=== PATIENT | male | born 1960 | race Caucasian/White ===

== ENCOUNTER 2017-07-19 17:51 | Inpatient (IN) | payer OTHER ==
[~2017-07-19] VITALS: Ht 177.8 cm; Wt 96.5 kg
[~2017-07-19 17:51] MED LIST: ASPI81TA82 PO; CLOP75 PO; FOLI1TAB PO; HYDR10TA16 PO; LORA-474 PO; METO25 PO; NITR0.4S SL; SIMV40TA PO; THIA50CA PO
[2017-07-19 18:22] VITALS: BP 168/92; PULSE 80; RESP 18; TEMP 97.8; O2SAT 98
[2017-07-19] MEDS ORDERED: SODIUM CHLOR 0.9% 1000 ML INJ 1,000 ML IV SCH (19:22)
[2017-07-19] MEDS ORDERED: MORPHINE SULFATE 4 MG/ML INJ IV PUSH ONE (19:30)
[2017-07-19] MEDS ORDERED: METOCLOPRAMIDE HCL 10 MG/2 ML VIAL IV PUSH ONE (19:30)
[2017-07-19] MEDS ORDERED: MORPHINE SULFATE 8 MG/ML INJ IV PUSH ONE (19:30)
[2017-07-19 19:58] LABS: AUTOMATED NEUTROPHIL # 8.2 TH/MM3 (1.8-7.7); BASOPHIL # 0.1 TH/MM3 (0-0.2); BASOPHIL % 0.5 % (0.0-2.0); EOSINOPHIL % 0.3 % (0.0-4.0); HEMATOCRIT 46.5 % (39.0-51.0); LYMPH % 17.5 % (9.0-44.0); LYMPHOCYTE # 1.9 TH/MM3 (1.0-4.8); MEAN CELL VOLUME 96.9 FL (80.0-100.0); MEAN CORPUSCULAR HEMOGLOBIN 33.4 PG (27.0-34.0); MEAN CORPUSCULAR HGB CONC 34.5 % (32.0-36.0); MEAN PLATELET VOLUME 9.3 FL (7.0-11.0); MONO % 5.5 % (0.0-8.0); MONOCYTE # 0.6 TH/MM3 (0-0.9); NEUT % 76.2 % (16.0-70.0); PLATELET COUNT 133 TH/MM3 (150-450); RED CELL DISTRIBUTION WIDTH 13.3 % (11.6-17.2); WHITE BLOOD COUNT 10.7 TH/MM3 (4.0-11.0)
[2017-07-19 20:00] VITALS: BP 160/76; PULSE 80; RESP 15; O2SAT 98
--- NOTE | 2017-07-19 20:09 | PD ---
HPI Chief Complaint: Abdominal Pain Time Seen by Provider: 19:12 Travel History International Travel<30 days: No Contact w/Intl Traveler<30days: No Traveled to known affect area: No History of Present Illness HPI 56-year-old male that presents to the ED for evaluation of abdominal pain. Per patient is been having severe abdominal pain since yesterday. Pain got previously worse today and he went to work. He does drink alcohol every day. He states that he has had pancreatitis in the past and feels different from that. Per patient the pain is severe and is more constant and usually with his pancreatitis. He does have a history of kidney stones in the past. 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 He states that he has been able to have bowel movements but not significant enough for him to get relief. He has feels nauseous and has vomited 2. Has not taken anything for this. No recent surgeries. States that his urine has been red. No chest pain or shortness of breath. PFSH Past Medical History Hx Anticoagulant Therapy: Yes (ASA 81) Cancer: No Cardiovascular Problems: No Genitourinary: No Implanted Vascular Access Dvce: No Musculoskeletal: No Neurologic: No Psychiatric: No Reproductive: No Respiratory: No Past Surgical History Other Surgery: No Social History Alcohol Use: Yes (Daily) Tobacco Use: No Substance Use: No Allergies-Medications (Allergen,Severity, Reaction): Coded Allergies: codeine (Unverified Allergy, Severe, 10/12/16) Uncoded Allergies: CODEINE/NAUSEA (Allergy, Unknown, 11/05/02) NKA (Allergy, Unknown, 11/05/02) Reported Meds & Prescriptions Reported Meds & Active Scripts Active Reported Ativan (Lorazepam) 1 Mg Tab 1 Mg PO Q8HPRN Take 1 tablet by mouth every 6 hours as needed for anxiety (generic for ativan) Nitrostat (Nitroglycerin) 0.4 Mg Subl 0.4 Mg SL PRN 1 TAB SL EVERY 5 MINS X 3 PRN CHEST PAIN Simvastatin 40 Mg Tab 40 Mg PO DAILY Plavix (Clopidogrel Bisulfate) 75 Mg Tab 75 Mg PO DAILY Aspir-81 (Aspirin) 81 Mg Tab 81 Mg PO DAILY Lopressor (Metoprolol Tartrate) 25 Mg Tab 25 Mg PO BID Folate (Folic Acid) 1 Mg Tab 1 Mg PO DAILY Thiamine (Thiamine Hcl) 50 Mg Cap 100 Mg PO DAILY Lortab 10/500 (Acetaminophen/Hydrocodone Bitart) 10 Mg/500 Mg Tab 1 Tab PO Q4HPRN FOR PAIN Review of Systems Except as stated in HPI: all other systems reviewed are Neg Physical Exam Narrative GENERAL: SKIN: Warm and dry. HEAD: Atraumatic. Normocephalic. EYES: Pupils equal and round. No scleral icterus. No injection or drainage. ENT: No nasal bleeding or discharge. Mucous membranes pink and moist. Tongue is midline. No uvula deviation. NECK: Trachea midline. No JVD. CARDIOVASCULAR: Regular rate and rhythm. No murmurs, S3, S4. RESPIRATORY: No accessory muscle use. Clear to auscultation. Breath sounds equal bilaterally. GASTROINTESTINAL: Abdomen soft, tender to palpation throughout the abdomen , nondistended. Hepatic and splenic margins not palpable. MUSCULOSKELETAL: Extremities without clubbing, cyanosis, or edema. No obvious deformities. Full range of motion of the upper and lower extremities bilaterally. 2+ pulses bilaterally. NEUROLOGICAL: Awake and alert. No obvious cranial nerve deficits. Motor grossly within normal limits. Five out of 5 muscle strength in the arms and legs. Normal speech. PSYCHIATRIC: Appropriate mood and affect; insight and judgment normal. Data Data Last Documented VS Vital Signs Date Time Temp Pulse Resp B/P (MAP) Pulse Ox O2 Delivery O2 Flow Rate FiO2 07/19/17:22 97 Nasal Cannula 2.00 07/19/17 18:22 97.8 80 18 168/92 (117) Orders Orders Complete Blood Count With Diff (07/19/17 19:22) Comprehensive Metabolic Panel (07/19/17 19:22) Lipase (07/19/17:22) Lactic Acid (07/19/17:22) Urinalysis - C+S If Indicated (07/19/17 19:22) Ct Abd/Pel W Iv Contrast(Rout) (07/19/17 19:22) Iv Access Insert/Monitor (07/19/17 19:) Ecg Monitoring (07/19/17:) Morphine Inj (Morphine Inj) (07/19/17 19:30) Sodium Chlor 0.9% 1000 Ml Inj (Ns 1000 M (07/19/17 19:22) Metoclopramide Inj (Reglan Inj) (07/19/17 19:30) Morphine Inj (Morphine Inj) (07/19/17 19:30) Labs Laboratory Tests Test 07/19/17 19:40 White Blood Count 10.7 TH/MM3 Red Blood Count 4.80 MIL/MM3 Hemoglobin 16.0 GM/DL Hematocrit 46.5 % Mean Corpuscular Volume 96.9 FL Mean Corpuscular Hemoglobin 33.4 PG Mean Corpuscular Hemoglobin Concent 34.5 % Red Cell Distribution Width 13.3 % Platelet Count 133 TH/MM3 Mean Platelet Volume 9.3 FL Neutrophils (%) (Auto) 76.2 % Lymphocytes (%) (Auto) 17.5 % Monocytes (%) (Auto) 5.5 % Eosinophils (%) (Auto) 0.3 % Basophils (%) (Auto) 0.5 % Neutrophils # (Auto) 8.2 TH/MM3 Lymphocytes # (Auto) 1.9 TH/MM3 Monocytes # (Auto) 0.6 TH/MM3 Eosinophils # (Auto) 0.0 TH/MM3 Basophils # (Auto) 0.1 TH/MM3 CBC Comment DIFF FINAL Differential Comment Blood Urea Nitrogen 28 MG/DL Creatinine 1.38 MG/DL Random Glucose 98 MG/DL Total Protein 8.8 GM/DL Albumin 4.3 GM/DL Calcium Level 10.0 MG/DL Alkaline Phosphatase 92 U/L Aspartate Amino Transf (AST/SGOT) 50 U/L Alanine Aminotransferase (ALT/SGPT) 58 U/L Total Bilirubin 0.8 MG/DL Sodium Level 137 MEQ/L Potassium Level 4.3 MEQ/L Chloride Level 102 MEQ/L Carbon Dioxide Level 19.6 MEQ/L Anion Gap 15 MEQ/L Lactic Acid Level 1.4 mmol/L Lipase 1687 U/L [facility] Medical Decision Making Medical Screen Exam Complete: Yes Emergency Medical Condition: Yes Medical Record Reviewed: Yes Differential Diagnosis Pancreatitis versus acute abdomen versus abdominal pain versus gallbladder disease versus kidney stone versus pyelonephritis versus gastritis Narrative Course 56-year-old male the presents to the ED for evaluation of abdominal pain. Patient was properly examined and was found to have signs and symptoms consistent with appears to be possible acute abdomen. Labs and imaging order. Patient will start IV fluids and pain medication. Labs and imaging pending at the writing of this note. Case signed out to Kenrick Del Real PA-C pending disposition and plan. Darian Stoll July 19, 2017 20:09
[2017-07-19 20:14] LABS: ALBUMIN 4.3 GM/DL (3.4-5.0); ALT (GPT) 58 U/L (12-78); AST (GOT) 50 U/L (15-37); BICARBONATE 19.6 MEQ/L (21.0-32.0); BLOOD UREA NITROGEN 28 MG/DL (7-18); CHLORIDE 102 MEQ/L (98-107); CREATININE 1.38 MG/DL (0.60-1.30); GLUCOSE,RANDOM 98 MG/DL (74-106); SODIUM (NA) 137 MEQ/L (136-145)
[2017-07-19 20:17] LABS: ALKALINE PHOSPHATASE 92 U/L (45-117); TOTAL BILIRUBIN ADULT 0.8 MG/DL (0.2-1.0); TOTAL PROTEIN 8.8 GM/DL (6.4-8.2)
--- NOTE | 2017-07-19 20:37 | PD ---
Data Data Last Documented VS Vital Signs Date Time Temp Pulse Resp B/P (MAP) Pulse Ox O2 Delivery O2 Flow Rate FiO2 07/19/17 21:01 16 07/19/17 20:22 97 Nasal Cannula 2.00 07/19/17 20:00 80 160/76 (104) 07/19/17 18:22 97.8 Orders Orders Complete Blood Count With Diff (07/19/17 19:22) Comprehensive Metabolic Panel (07/19/17:22) Lipase (07/19/17:) Lactic Acid (07/19/17:22) Urinalysis - C+S If Indicated (07/19/17:22) Ct Abd/Pel W Iv Contrast(Rout) (07/19/17:22) Iv Access Insert/Monitor (07/19/17:) Ecg Monitoring (07/19/17:) Morphine Inj (Morphine Inj) (07/19/17 19:30) Sodium Chlor 0.9% 1000 Ml Inj (Ns 1000 M (07/19/17:22) Metoclopramide Inj (Reglan Inj) (07/19/17 19:30) Morphine Inj (Morphine Inj) (07/19/17 19:30) Admit Order (Ed Use Only) (07/19/17 22:16) Labs Laboratory Tests Test 07/19/17 19:40 07/19/17 20:53 White Blood Count 10.7 TH/MM3 Red Blood Count 4.80 MIL/MM3 Hemoglobin 16.0 GM/DL Hematocrit 46.5 % Mean Corpuscular Volume 96.9 FL Mean Corpuscular Hemoglobin 33.4 PG Mean Corpuscular Hemoglobin Concent 34.5 % Red Cell Distribution Width 13.3 % Platelet Count 133 TH/MM3 Mean Platelet Volume 9.3 FL Neutrophils (%) (Auto) 76.2 % Lymphocytes (%) (Auto) 17.5 % Monocytes (%) (Auto) 5.5 % Eosinophils (%) (Auto) 0.3 % Basophils (%) (Auto) 0.5 % Neutrophils # (Auto) 8.2 TH/MM3 Lymphocytes # (Auto) 1.9 TH/MM3 Monocytes # (Auto) 0.6 TH/MM3 Eosinophils # (Auto) 0.0 TH/MM3 Basophils # (Auto) 0.1 TH/MM3 CBC Comment DIFF FINAL Differential Comment Blood Urea Nitrogen 28 MG/DL Creatinine 1.38 MG/DL Random Glucose 98 MG/DL Total Protein 8.8 GM/DL Albumin 4.3 GM/DL Calcium Level 10.0 MG/DL Alkaline Phosphatase 92 U/L Aspartate Amino Transf (AST/SGOT) 50 U/L Alanine Aminotransferase (ALT/SGPT) 58 U/L Total Bilirubin 0.8 MG/DL Sodium Level 137 MEQ/L Potassium Level 4.3 MEQ/L Chloride Level 102 MEQ/L Carbon Dioxide Level 19.6 MEQ/L Anion Gap 15 MEQ/L Lactic Acid Level 1.4 mmol/L Lipase 1687 U/L Urine Color YELLOW Urine Turbidity CLEAR Urine pH 5.5 Urine Specific [place] 1.017 Urine Protein NEG mg/dL Urine Glucose (UA) NEG mg/dL Urine Ketones 10 mg/dL Urine Occult Blood NEG Urine Nitrite NEG Urine Bilirubin NEG Urine Urobilinogen LESS THAN 2.0 MG/DL Urine Leukocyte Esterase NEG Urine RBC 1 /hpf Urine WBC LESS THAN 1 /hpf Microscopic Urinalysis Comment CULT NOT INDICATED MDM Medical Record Reviewed: Yes Supervised Visit with BRADY: No Narrative Course See previous providers notes. Briefly this is a 56-year-old male who presents for evaluation of generalized abdominal pain. Reports that he typically drinks a sixpack of alcohol a day. His pain started yesterday. He has generalized aching abdominal pain. He reports multiple episodes of emesis today. He reports that he had dark colored urine yesterday evening but no gross hematuria. He received pain medication prior to my examination with improvement in his pain. On examination he does have generalized abdominal tenderness to palpation. There is no guarding. Lab work is notable for a lipase count of 1687. He reports that he has had pancreatitis approximately 3- 4 times in the past. BUN is 28, creatinine is 1.38. CBC reveals a platelet count of 133. CT abdomen and pelvis reveals CONCLUSION: 1. Abnormal appearance to the head of the pancreas with diffuse enlargement, indistinctness of the surrounding fat, some focal layering free fluid, and thickening of the second portion of duodenal wall. These findings are new when compared to September 2016. The findings suggest pancreatitis; recommend correlation with clinical labs. 2. Left nephrectomy with stable appearance to the nephrectomy bed. At this point time the plan is to admit the patient for acute pancreatitis. Discussed with Dr. Dhillon who is agreeable with admission to Dr. العلي. Diagnosis Primary Impression: Pancreatitis Admitting Information Admitting Physician Requests: Admit Kenrick Del Real July 19, 2017 20:37
[2017-07-19 21:20] LABS: BILIRUBIN, URINE NEG (NEG); BLOOD, URINE NEG (NEG); GLUCOSE,URINE NEG (NEG); KETONE, URINE 10 mg/dL (NEG); NITRITE,URINE NEG (NEG); PH, URINE 5.5 (5.0-8.5); URINE COLOR YELLOW (YELLW/STRAW); URINE LEUKOCYTE ESTERASE NEG (NEG)
--- NOTE | 2017-07-19 22:12 | RADRPT ---
EXAM DATE: 07/19/2017 9:49 PM EDT AGE/SEX: 56 years / Male INDICATIONS: Abdomen pain. CLINICAL DATA: This is the patient's initial encounter. Patient reports that signs and symptoms have been present for 1 day and indicates a pain score of 8/10. MEDICAL/SURGICAL HISTORY: Pancreatitis. None. ORAL CONTRAST: No oral contrast ingested. RADIATION DOSE: 14.13 CTDI (mGy) COMPARISON: [facility], CT ABDOMEN AND PELVIS W/ CONTRAST, 10/01/2016. . TECHNIQUE: Multiple contiguous axial images were obtained through the abdomen and pelvis following b olus infusion of 100 ml Omnipaque 350 (iohexol) nonionic water-soluble contrast as a single exam do se. No oral contrast ingested. Using automated exposure control and adjustment of the mA and/or kV a ccording to patient size, the radiation dose was kept as low as reasonably achievable to obtain optim al diagnostic quality images. Lower Lungs: The visualized lower lungs are clear. Small hiatus hernia Liver: The liver has a homogeneous density without space-occupying lesion. There is no dilation of th e biliary tree. No calcified gallstones. Spleen: Homogeneous density without enlargement. Pancreas: Abnormal. There is mild enlargement and induration of the soft tissues about the head of t he pancreas, some fluid layering along anterior Gerota's fascia and thickening of the wall of the sec ond portion of the duodenum. These findings are new when compared to prior CT in September 2016. The bod y and tail the pancreas are normal in configuration. Kidneys: The right kidney is normal in appearance. Left nephrectomy without focal abnormality at the nephrectomy site. Adrenal Glands: Unremarkable. Aorta: The aorta and proximal iliac vessels are grossly unremarkable without aneurysmal dilation. Bowel/Mesentery: The bowel loops are grossly unremarkable. The cecum and sigmoid colon have a normal configuration. Abdominal Wall: Intact. Retroperitoneum: No evidence of adenopathy in the retrocrural, para-aortic, or deep pelvic regions. Bladder: Contours are smooth. Reproductive Organs: No abnormal masses or calcifications seen. Inguinal: The inguinal region is unremarkable without evidence of adenopathy. Bony Structures: Stable mild degenerative changes in the lower lumbar spine. No lytic or expansile l esions seen. CONCLUSION: 1. Abnormal appearance to the head of the pancreas with diffuse enlargement, indistinctness of the s urrounding fat, some focal layering free fluid, and thickening of the second portion of duodenal wall . These findings are new when compared to September 2016. The findings suggest pancreatitis; recommend c orrelation with clinical labs. 2. Left nephrectomy with stable appearance to the nephrectomy bed. Electronically signed by: Joel Moses MD 07/19/2017 10:11 PM EDT
[2017-07-19 22:18] VITALS: BP 148/70; PULSE 75; RESP 14; O2SAT 95
[2017-07-19] MEDS ORDERED: NALOXONE HCL 0.4 MG/ML AMP IV PUSH PRN (22:30)
[2017-07-19] MEDS ORDERED: MAGNESIUM HYDROXIDE SUSP 30 ML CUP PO PRN (22:30)
[2017-07-19] MEDS ORDERED: LACTULOSE SYRUP 20 GM/30 ML CUP PO PRN (22:30)
[2017-07-19] MEDS ORDERED: BISACODYL 10 MG SUPP RECTAL PRN (22:30)
[2017-07-19] MEDS ORDERED: LORazepam 1 MG TAB PO PRN (22:30)
[2017-07-19] MEDS ORDERED: NITROGLYCERIN 0.4 MG SL 25 TABS/BTL SL PRN (22:30)
--- NOTE | 2017-07-19 22:34 | HHI.HP ---
HPI Service [facility] Hospitalists Primary Care Physician Unknown Admission Diagnosis Acute pancreatitis Chief Complaint: 1 day abdominal pain nausea and vomit Travel History International Travel<30 Days: No Contact w/Intl Traveler <30 Da: No Traveled to Known Affected Are: No History of Present Illness 56-year-old male that presents to the ED for evaluation of abdominal pain. Per patient is been having severe abdominal pain since yesterday. Pain got previously worse today and he went to work. He does drink alcohol every day. He states that he has had pancreatitis in the past and feels different from that. Per patient the pain is severe and is more constant and usually with his pancreatitis. He does have a history of kidney stones in the past. 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 He states that he has been able to have bowel movements but not significant enough for him to get relief. He has feels nauseous and has vomited 2. Has not taken anything for this. No recent surgeries. States that his urine has been red. No chest pain or shortness of breath. In er had lab work consistent with pancreatitis and has CT suggestive of pancreatitis. Review of Systems Gastrointestinal: COMPLAINS OF: Abdominal pain, Nausea, Vomiting Past Family Social History Past Medical History hypertension,cad s/p stent kidney cancer pancreatitis Past Surgical History left nephrectomy 2 stents Reported Medications Ativan (Lorazepam) 1 Mg Tab 1 Mg PO Q8HPRN Take 1 tablet by mouth every 6 hours as needed for anxiety (generic for ativan) Nitrostat (Nitroglycerin) 0.4 Mg Subl 0.4 Mg SL PRN 1 TAB SL EVERY 5 MINS X 3 PRN CHEST PAIN Simvastatin 40 Mg Tab 40 Mg PO DAILY Plavix (Clopidogrel Bisulfate) 75 Mg Tab 75 Mg PO DAILY Aspir-81 (Aspirin) 81 Mg Tab 81 Mg PO DAILY Lopressor (Metoprolol Tartrate) 25 Mg Tab 25 Mg PO BID Folate (Folic Acid) 1 Mg Tab 1 Mg PO DAILY Thiamine (Thiamine Hcl) 50 Mg Cap 100 Mg PO DAILY Lortab 10/500 (Acetaminophen/Hydrocodone Bitart) 10 Mg/500 Mg Tab 1 Tab PO Q4HPRN FOR PAIN Allergies: Coded Allergies: codeine (Unverified Allergy, Severe, 10/12/16) Uncoded Allergies: CODEINE/NAUSEA (Allergy, Unknown, 11/05/02) NKA (Allergy, Unknown, 11/05/02) Social History drinks almost daily has decreased down to 6 cans beer daily Physical Exam Vital Signs Vital Signs Date Time Temp Pulse Resp B/P (MAP) Pulse Ox O2 Delivery O2 Flow Rate FiO2 07/19/17 22:18 75 14 148/70 (96) 95 Room Air 07/19/17 21:01 16 07/19/17 20:22 97 Nasal Cannula 2.00 07/19/17 20:00 80 15 160/76 (104) 98 Nasal Cannula 2.00 07/19/17 18:22 97.8 80 18 168/92 (117) 98 Physical Exam GENERAL: This is a well-nourished, well-developed patient, in no apparent distress. SKIN: No rashes, ecchymoses or lesions. Cool and dry. HEAD: Atraumatic. Normocephalic. No temporal or scalp tenderness. EYES: Pupils equal round and reactive. Extraocular motions intact. No scleral icterus. No injection or drainage. ENT: Nose without bleeding, purulent drainage or septal hematoma. Throat without erythema, tonsillar hypertrophy or exudate. Uvula midline. Airway patent. NECK: Trachea midline. No JVD or lymphadenopathy. Supple, nontender, no meningeal signs. CARDIOVASCULAR: Regular rate and rhythm without murmurs, gallops, or rubs. RESPIRATORY: Clear to auscultation. Breath sounds equal bilaterally. No wheezes , rales, or rhonchi. GASTROINTESTINAL: Abdomen soft, mild-tender, nondistended. No hepato- splenomegaly, or palpable masses. No guarding. MUSCULOSKELETAL: Extremities without clubbing, cyanosis, or edema. No joint tenderness, effusion, or edema noted. No calf tenderness. Negative Homans sign bilaterally. NEUROLOGICAL: Awake and alert. Cranial nerves II through XII intact. Motor and sensory grossly within normal limits. Five out of 5 muscle strength in all muscle groups. Normal speech. Laboratory Laboratory Tests Test 07/19/17 19:40 07/19/17 20:53 White Blood Count 10.7 Red Blood Count 4.80 Hemoglobin 16.0 Hematocrit 46.5 Mean Corpuscular Volume 96.9 Mean Corpuscular Hemoglobin 33.4 Mean Corpuscular Hemoglobin Concent 34.5 Red Cell Distribution Width 13.3 Platelet Count 133 Mean Platelet Volume 9.3 Neutrophils (%) (Auto) 76.2 Lymphocytes (%) (Auto) 17.5 Monocytes (%) (Auto) 5.5 Eosinophils (%) (Auto) 0.3 Basophils (%) (Auto) 0.5 Neutrophils # (Auto) 8.2 Lymphocytes # (Auto) 1.9 Monocytes # (Auto) 0.6 Eosinophils # (Auto) 0.0 Basophils # (Auto) 0.1 CBC Comment DIFF FINAL Differential Comment Blood Urea Nitrogen 28 Creatinine 1.38 Random Glucose 98 Total Protein 8.8 Albumin 4.3 Calcium Level 10.0 Alkaline Phosphatase 92 Aspartate Amino Transf (AST/SGOT) 50 Alanine Aminotransferase (ALT/SGPT) 58 Total Bilirubin 0.8 Sodium Level 137 Potassium Level 4.3 Chloride Level 102 Carbon Dioxide Level 19.6 Anion Gap 15 Lactic Acid Level 1.4 Lipase 1687 Urine Color YELLOW Urine Turbidity CLEAR Urine pH 5.5 Urine Specific [place] 1.017 Urine Protein NEG Urine Glucose (UA) NEG Urine Ketones 10 Urine Occult Blood NEG Urine Nitrite NEG Urine Bilirubin NEG Urine Urobilinogen LESS THAN 2.0 Urine Leukocyte Esterase NEG Urine RBC 1 Urine WBC LESS THAN 1 Microscopic Urinalysis Comment CULT NOT INDICATED Result Diagram: 07/19/17193907/19/171939 Imaging Last 24 hours Impressions Abdomen/Pelvis CT 07/19/171921 Signed Impressions: CONCLUSION: Course in er received pain medication IV fluid Septic Shock Reassessment Septic shock perfusion: reassessment completed Caprini VTE Risk Assessment Caprini VTE Risk Assessment: Mod/High Risk (score >= 2) Caprini Risk Assessment Model Point Value = 1 Point Value = 2 Point Value = 3 Point Value = 5 Age 41-60 Minor surgery BMI > 25 kg/m2 Swollen legs Varicose veins or History of unexplained or recurrent spontaneous Oral contraceptives or hormone replacement Sepsis (< 1 month) Serious lung disease, including pneumonia (< 1 month) Abnormal pulmonary function Acute myocardial infarction Congestive heart failure (< 1 month) History of inflammatory bowel disease Medical patient at bed rest Age 61-74 Arthroscopic surgery Major open surgery (> 45 min) Laparoscopic surgery (> 45 min) Malignancy Confined to bed (> 72 hours) Immobilizing plaster cast Central venous access Age >= 75 History of VTE Family history of VTE Factor V Leiden Prothrombin [id number] Lupus anticoagulant Anticardiolipin antibodies Elevated serum homocysteine Heparin-induced thrombocytopenia Other congenital or acquired thrombophilia Stroke (< 1 month) Elective arthroplasty Hip, pelvis, or leg fracture Acute spinal cord injury (< 1 month) Prophylaxis Regimen Total Risk Factor Score Risk Level Prophylaxis Regimen 0-1 Low Early ambulation 2 Moderate Order ONE of the following: *Sequential Compression Device (SCD) *Heparin 5000 units SQ BID 3-4 Higher Order ONE of the following medications: *Heparin 5000 units SQ TID *Enoxaparin/Lovenox 40 mg SQ daily (WT < 150 kg, CrCl > 30 mL/min) *Enoxaparin/Lovenox 30 mg SQ daily (WT < 150 kg, CrCl > 10-29 mL/min) *Enoxaparin/Lovenox 30 mg SQ BID (WT < 150 kg, CrCl > 30 mL/min) AND/OR *Sequential Compression Device (SCD) 5 or more Highest Order ONE of the following medications: *Heparin 5000 units SQ TID (Preferred with Epidurals) *Enoxaparin/Lovenox 40 mg SQ daily (WT < 150 kg, CrCl > 30 mL/min) *Enoxaparin/Lovenox 30 mg SQ daily (WT < 150 kg, CrCl > 10-29 mL/min) *Enoxaparin/Lovenox 30 mg SQ BID (WT < 150 kg, CrCl > 30 mL/min) AND *Sequential Compression Device (SCD) Assessment and Plan Problem List: (1) Pancreatitis ICD Codes: K85.90 - Acute pancreatitis without necrosis or infection, unspecified Status: Acute Plan: IV fluid pain medication follow labs (2) CAD (coronary artery disease) ICD Codes: I25.10 - Atherosclerotic heart disease of [place] coronary artery without angina pectoris Plan: continue home medication Assessment and Plan further plan as case develops Code Status full Discussed Condition With patient Physician Certification 2 Midnight Certification Type: Admission for Inpatient Services Order for Inpatient Services The services are ordered in accordance with Medicare regulations or non- Medicare payer requirements, as applicable. In the case of services not specified as inpatient-only, they are appropriately provided as inpatient services in accordance with the 2-midnight benchmark. Estimated LOS (days): 2 2 days is the estimated time the patient will need to remain in the hospital, assuming treatment plan goals are met and no additional complications. Post-Hospital Plan: Home Notes: Did discuss with patient abstinence from alcohol he does realize it is causing his symptoms Robin Boudreaux MD July 19, 2017 22:34
[2017-07-19] MEDS ORDERED: ONDANSETRON ODT 4 MG TAB PO PRN (22:45)
[2017-07-19] MEDS ORDERED: ACETAMINOPHEN/HYDROcodone 325 MG/10 MG TAB PO PRN (23:00)
[2017-07-19] MEDS: SODIUM CHLOR 0.45% 1000 ML INJ 1,000 ML IV SCH (23:11)
[2017-07-20] VITALS (14 sets, daily range): BP systolic 126–195; BP diastolic 68–99; PULSE 52–82; RESP 16–20; TEMP 97.6–98.4; O2SAT 92–100
[2017-07-20] MEDS ORDERED: IOHEXOL 350 MG/ML 10 ML VIAL (for RAD DIAG) IVCONTRAST ONE (00:09)
[2017-07-20] MEDS ORDERED: OMEP40CA2 (01:49)
[2017-07-20] MEDS ORDERED: LOSA50TA PO (01:49)
[2017-07-20] MEDS ORDERED: CENTCHW4 PO (01:49)
[2017-07-20] MEDS ORDERED: CARA1TAB6 PO (01:49)
[2017-07-20] MEDS ORDERED: CYCL10TA PO (01:49)
[2017-07-20] MEDS: MORPHINE SULFATE 4 MG/ML INJ IV PUSH PRN ×2 (02:09→06:16)
[2017-07-20] MEDS: SODIUM CHLORIDE 0.9% FLUSH 10 ML FLUSH IV FLUSH PRN ×2 (02:09→06:18)
[2017-07-20 07:19] LABS: ALBUMIN 3.2 GM/DL (3.4-5.0); ALT (GPT) 40 U/L (12-78); AST (GOT) 29 U/L (15-37); BICARBONATE 22.6 MEQ/L (21.0-32.0); BLOOD UREA NITROGEN 19 MG/DL (7-18); CALCIUM 8.2 MG/DL (8.5-10.1); CHLORIDE 105 MEQ/L (98-107); CREATININE 1.07 MG/DL (0.60-1.30); GLOMERULAR FILTRATION RATE 71 ML/MIN (>89); GLUCOSE,RANDOM 106 MG/DL (74-106); SODIUM (NA) 139 MEQ/L (136-145)
[2017-07-20 07:24] LABS: ALKALINE PHOSPHATASE 73 U/L (45-117); TOTAL PROTEIN 6.8 GM/DL (6.4-8.2)
[2017-07-20] MEDS: FOLIC ACID 1 MG TAB PO SCH (09:56)
[2017-07-20] MEDS: PRAVASTATIN SOD 80 MG TAB PO SCH (09:56)
[2017-07-20] MEDS: THIAMINE HCL 100 MG TAB PO SCH (09:57)
[2017-07-20] MEDS: METOPROLOL TARTRATE 25 MG TAB PO SCH ×2 (09:57→20:05)
[2017-07-20] MEDS: SODIUM CHLORIDE 0.9% FLUSH 10 ML FLUSH IV FLUSH SCH ×2 (09:58→20:08)
[2017-07-20] MEDS: DOCUSATE SODIUM 50 MG/SENNA 8.6 MG TAB PO SCH ×2 (09:58→20:05)
[2017-07-20] MEDS: ASPIRIN 81 MG CHEW TAB PO SCH (09:58)
[2017-07-20] MEDS: CLOPIDOGREL 75 MG TAB PO SCH (09:58)
[2017-07-20] MEDS ORDERED: LORazepam 2 MG/ML VIAL IV PUSH PRN ×4 (10:00)
[2017-07-20] MEDS ORDERED: LORazepam 2 MG TAB PO PRN (10:00)
[2017-07-20] MEDS ORDERED: FLUMAZENIL 0.5 MG/5 ML VIAL IV PUSH PRN (10:00)
[2017-07-20] MEDS ORDERED: HYDROmorphone HCL PF 1 MG/ML VIAL IV PUSH PRN (10:00)
[2017-07-20] MEDS: SENNOSIDES 8.6 MG TAB PO PRN (13:06)
[2017-07-20] MEDS: LORazepam 1 MG TAB PO PRN ×2 (13:06→20:05)
[2017-07-20] MEDS: DOCUSATE SODIUM 100 MG CAP PO SCH ×2 (13:09→20:05)
[2017-07-20] MEDS: ACETAMINOPHEN/HYDROcodone 325 MG/7.5 MG TAB PO PRN ×2 (14:06→20:05)
[2017-07-20] MEDS: SODIUM CHLOR 0.45% 1000 ML INJ 1,000 ML IV SCH ×2 (16:03→23:48)
[2017-07-20] MEDS: THIAMINE INJ 100 MG in SODIUM CHLORIDE 0.9% INJ 100 ML IV SCH (16:04)
--- NOTE | 2017-07-20 18:04 | HHI.PR ---
Subjective Remarks Patient reports abd pain better with medication C/O feeling hungry Patient asking when he can be DC 'd he would like to be back at work by Tuesday Objective Vitals Vital Signs Date Time Temp Pulse Resp B/P (MAP) Pulse Ox O2 Delivery O2 Flow Rate FiO2 07/20/17 16:08 97.8 52 18 127/68 (87) 95 07/20/17 15:06 18 07/20/17 12:30 99 Room Air 07/20/17 12:24 98.4 55 18 126/79 (95) 99 07/20/17 12:00 64 07/20/17 09:06 97.6 73 18 165/99 (121) 99 07/20/17 08:00 99 Room Air 07/20/17 08:00 81 07/20/17 04:50 98.1 64 16 137/90 (106) 100 07/20/17 04:05 69 07/20/17 03:02 16 07/20/17 01:00 Room Air 07/20/17 00:58 82 07/20/17 00:46 97.8 65 16 145/84 (104) 99 07/20/17 00:18 78 17 150/72 (98) 96 07/19/17 22:18 75 14 148/70 (96) 95 Room Air 07/19/17 21:01 16 07/19/17 20:22 97 Nasal Cannula 2.00 07/19/17 20:00 80 15 160/76 (104) 98 Nasal Cannula 2.00 07/19/17 18:22 97.8 80 18 168/92 (117) 98 07/20/17 07/20/17 07/21/17 15:00 23:00 07:00 Output Total 450 ml 1000 ml Balance -450 ml -1000 ml Output Urine Total 450 ml 1000 ml Result Diagram: 07/19/17 19407/20/17 0610 Other Results Laboratory Tests Test 07/19/17 19:40 07/19/17 20:53 07/20/17 06:10 White Blood Count 10.7 TH/MM3 Red Blood Count 4.80 MIL/MM3 Hemoglobin 16.0 GM/DL Hematocrit 46.5 % Mean Corpuscular Volume 96.9 FL Mean Corpuscular Hemoglobin 33.4 PG Mean Corpuscular Hemoglobin Concent 34.5 % Red Cell Distribution Width 13.3 % Platelet Count 133 TH/MM3 Mean Platelet Volume 9.3 FL Neutrophils (%) (Auto) 76.2 % Lymphocytes (%) (Auto) 17.5 % Monocytes (%) (Auto) 5.5 % Eosinophils (%) (Auto) 0.3 % Basophils (%) (Auto) 0.5 % Neutrophils # (Auto) 8.2 TH/MM3 Lymphocytes # (Auto) 1.9 TH/MM3 Monocytes # (Auto) 0.6 TH/MM3 Eosinophils # (Auto) 0.0 TH/MM3 Basophils # (Auto) 0.1 TH/MM3 CBC Comment DIFF FINAL Differential Comment Blood Urea Nitrogen 28 MG/DL 19 MG/DL Creatinine 1.38 MG/DL 1.07 MG/DL Random Glucose 98 MG/DL 106 MG/DL Total Protein 8.8 GM/DL 6.8 GM/DL Albumin 4.3 GM/DL 3.2 GM/DL Calcium Level 10.0 MG/DL 8.2 MG/DL Alkaline Phosphatase 92 U/L 73 U/L Aspartate Amino Transf (AST/SGOT) 50 U/L 29 U/L Alanine Aminotransferase (ALT/SGPT) 58 U/L 40 U/L Total Bilirubin 0.8 MG/DL 1.0 MG/DL Sodium Level 137 MEQ/L 139 MEQ/L Potassium Level 4.3 MEQ/L 3.9 MEQ/L Chloride Level 102 MEQ/L 105 MEQ/L Carbon Dioxide Level 19.6 MEQ/L 22.6 MEQ/L Anion Gap 15 MEQ/L 11 MEQ/L Lactic Acid Level 1.4 mmol/L Lipase 1687 U/L 1438 U/L Urine Color YELLOW Urine Turbidity CLEAR Urine pH 5.5 Urine Specific [place] 1.017 Urine Protein NEG mg/dL Urine Glucose (UA) NEG mg/dL Urine Ketones 10 mg/dL Urine Occult Blood NEG Urine Nitrite NEG Urine Bilirubin NEG Urine Urobilinogen LESS THAN 2.0 MG/DL Urine Leukocyte Esterase NEG Urine RBC 1 /hpf Urine WBC LESS THAN 1 /hpf Microscopic Urinalysis Comment CULT NOT INDICATED Estimat Glomerular Filtration Rate 71 ML/MIN Imaging Last 24 hours Impressions Abdomen/Pelvis CT 07/19/171921 Signed Impressions: CONCLUSION: Objective Remarks GENERAL: This is a well-nourished, well-developed patient, in no apparent distress. CARDIOVASCULAR: Regular rate and rhythm RESPIRATORY: Clear to auscultation. Breath sounds equal bilaterally. GASTROINTESTINAL: Abdomen soft, mild generalized abd tender, nondistended. Normal active bowel sounds MUSCULOSKELETAL: Extremities without clubbing, cyanosis, or edema. NEURO: Alert & Oriented x4 to person, place, time, situation. Moves all ext x4 A/P Problem List: (1) Pancreatitis ICD Codes: K85.90 - Acute pancreatitis without necrosis or infection, unspecified Status: Acute Plan: CT abd/Pelvis on admission revealed abnormal appearance to the head of the pancreas with diffuse enlargement, indistintness of the surrounding fat, some focal layering free fluid, and thickening of the second portion of the duodenal wall. The finding suggest pancreatitis. Left nephrectomy with stable appearance to the nephrectomy bed. Lipase on admission 1687 -> 1438 Patient reports he drinks, "about a 6 pack a day." Patient counselled encouraged to abstain NPO IV fluid pain medication [place] and Dilaudid IV as needed for pain repeat CMP and Lipase in AM (2) CAD (coronary artery disease) ICD Codes: I25.10 - Atherosclerotic heart disease of [place] coronary artery without angina pectoris Plan: continue home aspirin and plavix Assessment and Plan Patient examined. Assessment and plan formulated with Thelma Sharma PA-C. I agree with the above. Thelma Sharma July 20, 2017 18:04 Chemo العلي DO July 25, 2017 01:28
[2017-07-21] VITALS: BP 133/75; PULSE 56; RESP 20; TEMP 98; O2SAT 99
[2017-07-21 05:03] VITALS: BP 148/83; PULSE 65; RESP 20; TEMP 98.3; O2SAT 96
[2017-07-21 07:44] LABS: ALBUMIN 3.2 GM/DL (3.4-5.0); AST (GOT) 28 U/L (15-37); BICARBONATE 24.5 MEQ/L (21.0-32.0); BLOOD UREA NITROGEN 13 MG/DL (7-18); CALCIUM 8.6 MG/DL (8.5-10.1); CHLORIDE 104 MEQ/L (98-107); CREATININE 1.03 MG/DL (0.60-1.30); GLOMERULAR FILTRATION RATE 74 ML/MIN (>89); GLUCOSE,RANDOM 99 MG/DL (74-106); SODIUM (NA) 138 MEQ/L (136-145)
[2017-07-21 07:45] LABS: ALT (GPT) 35 U/L (12-78)
[2017-07-21 07:48] LABS: ALKALINE PHOSPHATASE 70 U/L (45-117); TOTAL BILIRUBIN ADULT 0.9 MG/DL (0.2-1.0)
[2017-07-21 10:02] VITALS: BP 138/79; PULSE 68; RESP 18; TEMP 98.5; O2SAT 99
[2017-07-21] MEDS ORDERED: DOXY100T PO (10:12)
[2017-07-21] MEDS: SODIUM CHLORIDE 0.9% FLUSH 10 ML FLUSH IV FLUSH SCH ×2 (10:13→20:18)
[2017-07-21] MEDS: DOCUSATE SODIUM 100 MG CAP PO SCH ×2 (10:16→20:18)
[2017-07-21] MEDS: SENNOSIDES 8.6 MG TAB PO PRN (10:16)
[2017-07-21] MEDS: METOPROLOL TARTRATE 25 MG TAB PO SCH ×2 (10:17→20:19)
[2017-07-21] MEDS: FOLIC ACID 1 MG TAB PO SCH (10:17)
[2017-07-21] MEDS: THIAMINE HCL 100 MG TAB PO SCH (10:17)
[2017-07-21] MEDS: ASPIRIN 81 MG CHEW TAB PO SCH (10:17)
[2017-07-21] MEDS: PRAVASTATIN SOD 80 MG TAB PO SCH (10:18)
[2017-07-21] MEDS: MULTIVITAMINS/MINERALS THERAPEUTIC TAB PO SCH (10:18)
[2017-07-21] MEDS: CLOPIDOGREL 75 MG TAB PO SCH (10:20)
[2017-07-21] MEDS: DOCUSATE SODIUM 50 MG/SENNA 8.6 MG TAB PO SCH ×2 (10:21→20:18)
[2017-07-21] MEDS: THIAMINE INJ 100 MG in SODIUM CHLORIDE 0.9% INJ 100 ML IV SCH (10:22)
[2017-07-21 12:03] VITALS: BP 149/83; PULSE 53; RESP 18; TEMP 96.5; O2SAT 97
--- NOTE | 2017-07-21 16:17 | HHI.PR ---
Subjective Remarks Patient reports feeling better today no longer having abd pain Objective Vitals Vital Signs Date Time Temp Pulse Resp B/P (MAP) Pulse Ox O2 Delivery O2 Flow Rate FiO2 07/21/17 12:03 96.5 53 18 149/83 (105) 97 07/21/17 10:02 98.5 68 18 138/79 (98) 99 07/21/17 08:00 95 Room Air 07/21/17 05:03 98.3 65 20 148/83 (104) 96 07/21/17 00:00 98.0 56 20 133/75 (94) 99 07/20/17 20:00 Room Air 07/20/17 20:00 98.2 61 20 158/90 (112) 96 Result Diagram: 07/19/17193907/21/17 0650 Other Results Laboratory Tests Test 07/19/17 19:40 07/19/17 20:53 07/20/17 06:10 07/21/17 06:50 White Blood Count 10.7 TH/MM3 Red Blood Count 4.80 MIL/MM3 Hemoglobin 16.0 GM/DL Hematocrit 46.5 % Mean Corpuscular Volume 96.9 FL Mean Corpuscular Hemoglobin 33.4 PG Mean Corpuscular Hemoglobin Concent 34.5 % Red Cell Distribution Width 13.3 % Platelet Count 133 TH/MM3 Mean Platelet Volume 9.3 FL Neutrophils (%) (Auto) 76.2 % Lymphocytes (%) (Auto) 17.5 % Monocytes (%) (Auto) 5.5 % Eosinophils (%) (Auto) 0.3 % Basophils (%) (Auto) 0.5 % Neutrophils # (Auto) 8.2 TH/MM3 Lymphocytes # (Auto) 1.9 TH/MM3 Monocytes # (Auto) 0.6 TH/MM3 Eosinophils # (Auto) 0.0 TH/MM3 Basophils # (Auto) 0.1 TH/MM3 CBC Comment DIFF FINAL Differential Comment Blood Urea Nitrogen 28 MG/DL 19 MG/DL 13 MG/DL Creatinine 1.38 MG/DL 1.07 MG/DL 1.03 MG/DL Random Glucose 98 MG/DL 106 MG/DL 99 MG/DL Total Protein 8.8 GM/DL 6.8 GM/DL 7.0 GM/DL Albumin 4.3 GM/DL 3.2 GM/DL 3.2 GM/DL Calcium Level 10.0 MG/DL 8.2 MG/DL 8.6 MG/DL Alkaline Phosphatase 92 U/L 73 U/L 70 U/L Aspartate Amino Transf (AST/SGOT) 50 U/L 29 U/L 28 U/L Alanine Aminotransferase (ALT/SGPT) 58 U/L 40 U/L 35 U/L Total Bilirubin 0.8 MG/DL 1.0 MG/DL 0.9 MG/DL Sodium Level 137 MEQ/L 139 MEQ/L 138 MEQ/L Potassium Level 4.3 MEQ/L 3.9 MEQ/L 4.2 MEQ/L Chloride Level 102 MEQ/L 105 MEQ/L 104 MEQ/L Carbon Dioxide Level 19.6 MEQ/L 22.6 MEQ/L 24.5 MEQ/L Anion Gap 15 MEQ/L 11 MEQ/L 10 MEQ/L Lactic Acid Level 1.4 mmol/L Lipase 1687 U/L 1438 U/L 676 U/L Urine Color YELLOW Urine Turbidity CLEAR Urine pH 5.5 Urine Specific [place] 1.017 Urine Protein NEG mg/dL Urine Glucose (UA) NEG mg/dL Urine Ketones 10 mg/dL Urine Occult Blood NEG Urine Nitrite NEG Urine Bilirubin NEG Urine Urobilinogen LESS THAN 2.0 MG/DL Urine Leukocyte Esterase NEG Urine RBC 1 /hpf Urine WBC LESS THAN 1 /hpf Microscopic Urinalysis Comment CULT NOT INDICATED Estimat Glomerular Filtration Rate 71 ML/MIN 74 ML/MIN Imaging Last 24 hours Impressions Abdomen/Pelvis CT 07/19/171921 Signed Impressions: CONCLUSION: Objective Remarks GENERAL: This is a well-nourished, well-developed patient, in no apparent distress. CARDIOVASCULAR: Regular rate and rhythm RESPIRATORY: Clear to auscultation. Breath sounds equal bilaterally. GASTROINTESTINAL: Abdomen soft, nontender, nondistended. Normal active bowel sounds MUSCULOSKELETAL: Extremities without clubbing, cyanosis, or edema. NEURO: Alert & Oriented x4 to person, place, time, situation. Moves all ext x4 A/P Problem List: (1) Pancreatitis ICD Codes: K85.90 - Acute pancreatitis without necrosis or infection, unspecified Status: Acute Plan: CT abd/Pelvis on admission revealed abnormal appearance to the head of the pancreas with diffuse enlargement, indistintness of the surrounding fat, some focal layering free fluid, and thickening of the second portion of the duodenal wall. The finding suggest pancreatitis. Left nephrectomy with stable appearance to the nephrectomy bed. Lipase on admission 1687 -> 1438 -> 676 Patient reports he drinks, "about a 6 pack a day." Patient counselled encouraged to abstain IV fluids DC'd start with clear liquid diet and advance as patient tolerates Plan to DC in AM if patient tolerates diet (2) CAD (coronary artery disease) ICD Codes: I25.10 - Atherosclerotic heart disease of [place] coronary artery without angina pectoris Plan: continue home aspirin and plavix Assessment and Plan Patient examined. Assessment and plan formulated with Thelma Sharma PA-C. I agree with the above. Thelma Sharma July 21, 2017 16:17 Chemo العلي DO July 25, 2017 01:29
[2017-07-21] MEDS: ACETAMINOPHEN/HYDROcodone 325 MG/7.5 MG TAB PO PRN ×2 (17:04→20:18)
[2017-07-21 20:11] VITALS: BP 154/87; PULSE 69; RESP 20; TEMP 98.9; O2SAT 97
[2017-07-21] MEDS: LORazepam 1 MG TAB PO PRN (20:17)
[2017-07-21] MEDS: SODIUM CHLOR 0.45% 1000 ML INJ 1,000 ML IV SCH (20:20)
[2017-07-22] VITALS: BP 143/87; PULSE 57; RESP 22; TEMP 98.3; O2SAT 94
[2017-07-22 04:00] VITALS: BP 129/74; PULSE 60; RESP 20; TEMP 98.7; O2SAT 94
[2017-07-22] MEDS: SODIUM CHLOR 0.45% 1000 ML INJ 1,000 ML IV SCH (04:20)
[2017-07-22 09:00] VITALS: BP 145/88; RESP 18; TEMP 98.6; O2SAT 96
[2017-07-22] MEDS: SODIUM CHLORIDE 0.9% FLUSH 10 ML FLUSH IV FLUSH SCH (09:00)
[2017-07-22] MEDS ORDERED: NORC5TAB PO (09:13)
--- NOTE | 2017-07-22 09:15 | HHI.DS ---
Discharge Summary Admission Date July 19, 2017 at 21:37 Discharge Date: July 22, 2017 Admitting Diagnosis Acute pancreatitis (1) Pancreatitis Diagnosis: Principal ICD Codes: K85.90 - Acute pancreatitis without necrosis or infection, unspecified Status: Acute (2) CAD (coronary artery disease) Diagnosis: Secondary ICD Codes: I25.10 - Atherosclerotic heart disease of [place] coronary artery without angina pectoris Consultants None Procedures None Brief History 56-year-old male that presents to the ED for evaluation of abdominal pain. Per patient is been having severe abdominal pain since yesterday. Pain got previously worse today and he went to work. He does drink alcohol every day. He states that he has had pancreatitis in the past and feels different from that. Per patient the pain is severe and is more constant and usually with his pancreatitis. He does have a history of kidney stones in the past. 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 He states that he has been able to have bowel movements but not significant enough for him to get relief. He has feels nauseous and has vomited 2. Has not taken anything for this. No recent surgeries. States that his urine has been red. No chest pain or shortness of breath. In er had lab work consistent with pancreatitis and has CT suggestive of pancreatitis. CBC/BMP: 07/19/17 1940 07/21/17 0650 Significant Findings Laboratory Tests Test 07/19/17 19:40 07/19/17 20:53 07/20/17 06:10 07/21/17 06:50 Platelet Count 133 TH/MM3 (150-450) Neutrophils (%) (Auto) 76.2 % (16.0-70.0) Neutrophils # (Auto) 8.2 TH/MM3 (1.8-7.7) Blood Urea Nitrogen 28 MG/DL (7-18) 19 MG/DL (7-18) Creatinine 1.38 MG/DL (0.60-1.30) Total Protein 8.8 GM/DL (6.4-8.2) Aspartate Amino Transf (AST/SGOT) 50 U/L (15-37) Carbon Dioxide Level 19.6 MEQ/L (21.0-32.0) Lipase 1687 U/L (73-393) 1438 U/L (73-393) 676 U/L (73-393) Urine Ketones 10 mg/dL (NEG) Albumin 3.2 GM/DL (3.4-5.0) 3.2 GM/DL (3.4-5.0) Calcium Level 8.2 MG/DL (8.5-10.1) Estimat Glomerular Filtration Rate 71 ML/MIN (>89) 74 ML/MIN (>89) Imaging Last Impressions Abdomen/Pelvis CT 07/19/171921 Signed Impressions: CONCLUSION: 1. Abnormal appearance to the head of the pancreas with diffuse enlargement, i ndistinctness of the surrounding fat, some focal layering free fluid, and thick ening of the second portion of duodenal wall. These findings are new when aman red to September 2016. The findings suggest pancreatitis; recommend correlation [facility] clinical labs. 2. Left nephrectomy with stable appearance to the nephrectomy bed. PE at Discharge GENERAL: This is a well-nourished, well-developed patient, in no apparent distress. CARDIOVASCULAR: Regular rate and rhythm RESPIRATORY: Clear to auscultation. Breath sounds equal bilaterally. GASTROINTESTINAL: Abdomen soft, nontender, nondistended. Normal active bowel sounds MUSCULOSKELETAL: Extremities without clubbing, cyanosis, or edema. NEURO: Alert & Oriented x4 to person, place, time, situation. Moves all ext x4 Hospital Course Pancreatitis CT abd/Pelvis on admission revealed abnormal appearance to the head of the pancreas with diffuse enlargement, indistintness of the surrounding fat, some focal layering free fluid, and thickening of the second portion of the duodenal wall. The finding suggest pancreatitis. Left nephrectomy with stable appearance to the nephrectomy bed. Lipase on admission 1687 -> 1438 -> 676 Patient reports he drinks, "about a 6 pack a day." Patient counselled encouraged to abstain IV fluids DC'd start with clear liquid diet and advance as patient tolerates. Patient tolerating heart healthy diet. DC patient to follow up with PCP and [facility] CAD (coronary artery disease) continue home aspirin and plavix Pt Condition on Discharge: Stable Discharge Disposition: Discharge Home Discharge Instructions DIET: Follow Instructions for: Heart Healthy Diet Activities you can perform: Regular-No Restrictions Follow up Referrals: Clinic - 2-3 Days with [facility] PCP Follow-up - [address] Arzola New Medications: Hydrocodone-Acetaminophen ([place]) 5 Mg-325 Mg Tab 1 TAB PO Q6H PRN for PAIN, #5 TAB 0 Refills Continued Medications: Aspirin (Aspir-81) 81 Mg Tab 81 MG PO DAILY Clopidogrel Bisulfate (Plavix) 75 Mg Tab 75 MG PO DAILY Folic Acid (Folate) 1 Mg Tab 1 MG PO DAILY Hydrocodone-Acetaminophen (Lortab 10/500) 10 Mg/500 Mg Tab 1 TAB PO Q4HPRN FOR PAIN Lorazepam (Ativan) 1 Mg Tab 1 MG PO Q8HPRN, TAB Take 1 tablet by mouth every 6 hours as needed for anxiety (generic for ativan) Losartan (Losartan) 50 Mg Tab 50 MG PO DAILY for Blood Pressure Management, #30 TAB 0 Refills Metoprolol Tartrate 25 mg (Metoprolol Tartrate 25 mg) 25 Mg Tab 25 MG PO BID Multiple Vitamins W/ Minerals (Centrum) 1 Chew 1 TAB PO BID for Nutritional Supplement, TAB 0 Refills Nitroglycerin (Nitrostat) 0.4 Mg Subl 0.4 MG SL PRN 1 TAB SL EVERY 5 MINS X 3 PRN CHEST PAIN Omeprazole (Omeprazole) 40 Mg Cap 40 MG BID, #30 CAP 0 Refills Simvastatin (Simvastatin) 40 Mg Tab 40 MG PO DAILY Sucralfate (Carafate) 1 Gram Tab 1 GM PO BID for Ulcer Prevention, #120 TAB 0 Refills On empty stomach Thiamine Hcl (Thiamine) 50 Mg Cap 100 MG PO DAILY Discontinued Medications: Cyclobenzaprine (Flexeril) 10 Mg Tab 10 MG PO TID for Muscle Spasm, #90 TAB 0 Refills Doxycycline Hyclate (Doxycycline Hyclate) 100 Mg Tab 100 MG PO BID for blepharitis both eyes, TAB Additional Information Patient examined. Assessment and plan formulated with Thelma Sharma PA-C. I agree with the above. Thelma Sharma July 22, 2017 09:15 Chemo العلي DO July 25, 2017 01:30
--- NOTE | 2017-07-22 09:18 | HHI.DCPOC ---
Discharge Care Plan Diagnosis: (1) Pancreatitis (2) CAD (coronary artery disease) (3) ETOH abuse Goals to Promote Your Health * To prevent worsening of your condition and complications * To maintain your health at the optimal level Directions to Meet Your Goals Take your medications as prescribed Follow your dietary instruction Follow activity as directed Keep your appointments as scheduled Take your immunizations and boosters as scheduled If your symptoms worsen call your PCP, if no PCP go to Urgent Care Center or Emergency Room Smoking is Dangerous to Your Health. Avoid second hand smoke Call the 24-hour hour crisis hotline for domestic abuse at Thelma Sharma July 22, 2017 09:18 Chemo العلي DO July 25, 2017 01:30
[2017-07-22] MEDS: CLOPIDOGREL 75 MG TAB PO SCH (09:44)
[2017-07-22] MEDS: DOCUSATE SODIUM 100 MG CAP PO SCH (09:44)
[2017-07-22] MEDS: DOCUSATE SODIUM 50 MG/SENNA 8.6 MG TAB PO SCH (09:44)
[2017-07-22] MEDS: THIAMINE HCL 100 MG TAB PO SCH (09:44)
[2017-07-22] MEDS: PRAVASTATIN SOD 80 MG TAB PO SCH (09:44)
[2017-07-22] MEDS: ASPIRIN 81 MG CHEW TAB PO SCH (09:44)
[2017-07-22] MEDS: MULTIVITAMINS/MINERALS THERAPEUTIC TAB PO SCH (09:44)
[2017-07-22] MEDS: FOLIC ACID 1 MG TAB PO SCH (09:44)
[2017-07-22] MEDS: METOPROLOL TARTRATE 25 MG TAB PO SCH (09:44)
[2017-07-22] MEDS: THIAMINE INJ 100 MG in SODIUM CHLORIDE 0.9% INJ 100 ML IV SCH (09:44)
== END 2017-07-22 11:00 | disposition home or self-care (01) | DRG 440 ==
LOC: NEPE 17:51 → NEDA 21:37 → HCIN 07-20 00:30
PROVIDERS: ADMIT Hospitalist; ATTEND Hospitalist
DX: K85.90 Acute pancreatitis without necrosis or infection, unspecified (principal); I10 Essential (primary) hypertension; I25.10 Atherosclerotic heart disease of native coronary artery without angina pectoris; Z95.5 Presence of coronary angioplasty implant and graft; Z88.5 Allergy status to narcotic agent; Z79.82 Long term (current) use of aspirin; Z79.891 Long term (current) use of opiate analgesic; Z79.899 Other long term (current) drug therapy; Z85.528 Personal history of other malignant neoplasm of kidney; Z90.5 Acquired absence of kidney
CPT/HCPCS: 74177; 80053; 81001; 83605; 83690; 85025; 96361; 96374; J2270; J2765; J3411; J7030; Q9967